=== PATIENT | female | born 1955 | race Caucasian/White ===

== ENCOUNTER 2022-06-10 11:28 | Emergency (ER) | payer MEDICARE, BC, SELFPAY ==
--- NOTE | 2022-06-10 11:30 | CRLHL7_ITS ---
For Patients: As a result of the Cures Act, medical imaging exams and procedure reports are released immediately into your electronic medical record. You may view this report before your referring provider. If you have questions, please contact your health care provider. Indication: Injury Technique: A total of three views of the left breast were acquired. Comparison: None Findings: Bones: Demineralization. Comminuted impacted distal left radius fracture with intra-articular extension. Ulnar styloid fracture. Posttraumatic positive ulnar variance. Joint spaces: Osteoarthritis Soft tissues: Soft tissue swelling Impression: Comminuted impacted distal left radius fracture with intra-articular extension. This is dorsally angulated. Ulnar styloid fracture. Demineralization. Osteoarthritis. Dictated by Iker Ayala MD @ 06/10/2022 1:10:42 PM (Electronically Signed)
[2022-06-10 11:44] VITALS: BP 132/80; PULSE 75; RESP 16; TEMP 36.9; O2SAT 93
--- NOTE | 2022-06-10 12:38 | ED.GENADULT ---
HPI - General Adult General Time Seen by Provider: 12:38 Date Seen: 06/10/22 Chief complaint: Fall/Minor Trauma Stated complaint: Fell yesterday, left wrist injury Time Seen by Provider: 06/10/22 11:29 Source: patient Mode of arrival: ambulatory Limitations: no limitations History of Present Illness HPI narrative: Patient is a 67 year white female who reportedly fell in the snow yesterday and injured her left wrist. She has pain only in her left wrist area primarily in the snuffbox region, with some dorsal swelling of her wrist. She has fair range of motion of her wrist but it feels swollen and painful. She did not injure elbow forearm or shoulder, she generally port she is healthy but has ?difficulty getting around at times and ?. Patient denies neck pain, loss conscious comes, headache or head injury Related Data Previous Rx's Medication Instructions Recorded diclofenac sodium 50 mg 50 mg PO BID #60 tabs 01/29/22 tablet,delayed release aripiprazole 5 mg tablet 5 mg PO .hs #90 tabs 04/16/22 levothyroxine 50 mcg capsule 50 mcg PO QDAY #90 caps 04/16/22 lorazepam 1 mg tablet 1 mg PO QDAY PRN anxiety #30 tabs 04/16/22 rosuvastatin 5 mg tablet 5 mg PO DAILY #90 tabs 04/16/22 tolterodine 1 mg tablet 1 mg PO BID #180 tabs 04/16/22 Allergies Allergy/AdvReac Type Severity Reaction Status Date / Time No Known Drug Allergies Allergy Verified 04/16/22 09:34 Review of Systems Status of ROS: Reports: 6 or more systems reviewed and unremarkable except as noted in History and below [facility] Social History Smoking Status: Never smoker Little interest or pleasure in doing things: several days Feeling down, depressed, or hopeless: several days Exam Narrative: Exam Narrative: Objective: Patient is alert orient x3, neck and head are unremarkable Vital signs unremarkable Left upper extremity shows no bruising of the shoulder no tenderness the shoulder, arm, or elbow. The patient does have some bruising of her distal forearm and wrist, and some soft tissue swelling over dorsum wrist, she is mildly tender in her anatomic snuffbox on the left wrist. No open wounds are noted, distal CMS intact Const: Vital Signs, click to edit/add: Vital Signs - 24 hr 06/10/22 11:44 Temperature 98.4 F Pulse Rate [Pulse Oximeter] 75 Respiratory Rate 16 Blood Pressure [Ri ght Upper Arm] 132/80 Pulse Oximetry 93 Oxygen Delivery Me thod Room Air Course Vital Signs Vital signs: Initial Vital Signs Temperature 98.4 F 06/10/22 11:44 Temperature Source Temporal Artery Scan 06/10/22 11:44 Pulse Rate 75 06/10/22 11:44 Pulse Rhythm 06/10/22 11:44 Respiratory Rate 16 06/10/22 11:44 Blood Pressure 132/80 06/10/22 11:44 Blood Pressure Mean 97 06/10/22 11:44 Blood Pressure Position Sitting 06/10/22 11:44 Pulse Oximetry 93 06/10/22 11:44 Oxygen Delivery Method 06/10/22 11:44 Vital Signs Temperature 98.4 F 06/10/22 11:44 Pulse Rate 75 06/10/22 11:44 Respiratory Rate 16 06/10/22 11:44 Blood Pressure 132/80 06/10/22 11:44 Pulse Oximetry 93 06/10/22 11:44 Oxygen Delivery Method 06/10/22 11:44 Temperature 98.4 F 06/10/22 11:44 Pulse Rate 75 06/10/22 11:44 Respiratory Rate 16 06/10/22 11:44 Blood Pressure 132/80 06/10/22 11:44 Pulse Oximetry 93 06/10/22 11:44 Oxygen Delivery Method 06/10/22 11:44 Medical Decision Making MDM Narrative Medical decision making narrative: I suspect the patient may have a distal radial fracture or even a scaphoid fracture, given her areas of discomfort, will need x-rays as above. Irregardless of x-rays will need a thumb spica splint ortho follow-up in 3-5 days, ibuprofen and Tylenol as needed for discomfort. Splint precautions will be given. Addendum: By my read the patient has a comminuted distal radial fracture that is mildly dorsally angulated, but given his comminuted appearance I do not think relocation is going to be useful will simply splint a thumb spica splint orthopedic followup in 3-5 days we will make an appointment for her eyelid Advil and Tylenol as needed. I applied the thumb spica splint Discharge Plan Discharge Clinical Impression: Injury of left wrist Patient Disposition: Home, Self-Care Condition: Stable Instructions: Wrist Fracture in Adults (ED) Additional Instructions: Splint, elevation, ibuprofen and Tylenol as needed, follow-up with orthopedics as scheduled within the next 3-5 days. Return sooner to ED problems or concerns. If splint is too tight or other issues, return to ED sooner than follow-up appointment. Activity Level: Light activity Discharge Diet: Regular Prescriptions: No Action levothyroxine 50 mcg capsule 50 mcg PO QDAY Qty: 90 1RF aripiprazole 5 mg tablet 5 mg PO .hs Qty: 90 1RF rosuvastatin 5 mg tablet 5 mg PO DAILY Qty: 90 1RF lorazepam 1 mg tablet 1 mg PO QDAY PRN (Reason: anxiety) Qty: 30 1RF tolterodine 1 mg tablet 1 mg PO BID Qty: 180 1RF diclofenac sodium 50 mg tablet,delayed release (DR/EC) 50 mg PO BID Qty: 60 3RF Follow Up/Referrals: Hieu Santos MD [Primary Care Provider] - Stand Alone Forms: [facility] Info Instructions Procedures Additional Procedures Procedure name: I personally applied a short-arm thumb spica splint to the patient. We davina
[2022-06-10] MEDS: KETOROLAC 10 MG TABLET PO (13:07)
--- NOTE | 2022-06-10 13:37 | ED.NURSE ---
No appointments were available in requested follow up time frame. Email was sent to scheduling to reach out to patient and work on appointment.
== END 2022-06-10 13:38 | disposition home or self-care (01) ==
LOC: ED 12:53
PROVIDERS: Emergency Provider Family Medicine; PCP Family Medicine
DX: S52.352A Displaced comminuted fracture of shaft of radius, left arm, initial encounter for closed fracture (principal); W00.9XXA Unspecified fall due to ice and snow, initial encounter
CPT/HCPCS: 29125; 73110; 99284; A9270

== ENCOUNTER 2022-06-19 11:24 | Outpatient (CLI) | payer MEDICARE, BC, SELFPAY | END 2022-06-19 11:25 | disposition home or self-care (01) | LOC: LONREF 11:26 | PROVIDERS: PCP Family Medicine; Visit Provider Family Medicine | DX: E03.9 Hypothyroidism, unspecified (principal) | CPT/HCPCS: 84443 ==

== ENCOUNTER 2022-06-21 06:52 | Day surgery (SDC) | payer MEDICARE, BC, SELFPAY ==
[2022-06-21] VITALS (10 sets, daily range): BP systolic 111–135; BP diastolic 38–83; PULSE 52–71; RESP 16–18; TEMP 36.5–36.7; O2SAT 93–99; BMI 41.7
[2022-06-21] MEDS: SODIUM CHLORIDE 0.9 % (FLUSH) 10 ML SYRINGE IVF (07:30)
[2022-06-21] MEDS: LACTATED RINGERS 1000 ML 1,000 ML 100 ML IV ×2 (07:30→08:50)
[2022-06-21] MEDS: MIDAZOLAM HCL 1 MG/ML inj IVP (07:35)
[2022-06-21] MEDS: fentaNYL 100 MCG/2 ML inj IVP (07:35)
--- NOTE | 2022-06-21 07:36 | SUR.PREOP ---
TIME?OUT:?0735 PT/RN/MDA?VERIFICATION?OF?SURGICAL?SITE,?PROCEDURE,?AND?CONSENT OBTAINED?PRIOR?TO?INVASIVE?PROCEDURE.
--- NOTE | 2022-06-21 07:58 | P.NB_ITS ---
Nerve Block Nerve Block Time Seen by Provider: 07:30 Date Seen: 06/21/22 Type of block requested by surgeon for post-operative analgesia: axillary Side: left Time out performed: Yes Verification of patient name: Yes Verification of date of : Yes Name of person performing procedure: Charles Dodson Continuous monitoring Was continuous monitoring of O2 sat, B/P, vehicle monitor technician, recorded every 15 minutes?: Yes Procedure Checklist: sterile prep, needles and gloves Ultrasound guided. Images saved: Yes Medications given in 5ml increments after negative aspiration: Ropivicaine %: 0.5 mL: 16 and Lidocaine %: 2 mL: 5 Decadron (mg): 10 Precedex (mcg): 20 Patient tolerated procedure well: Yes Block Charges Block Charge (with Pro Fee): Axillary Nerve Use of Ultrasound Machine for Block: Yes- US Guidance/pain block
--- NOTE | 2022-06-21 08:00 | CRLHL7_ITS ---
For Patients: As a result of the Cures Act, medical imaging exams and procedure reports are released immediately into your electronic medical record. You may view this report before your referring provider. If you have questions, please contact your health care provider. Indication: ORIF LEFT DISTAL RADIUS Technique: Three fluoroscopic images of the left wrist. Fluoroscopic time 50.9 seconds. IMPRESSION: Fluoroscopic guidance for open reduction internal fixation of distal radial fracture. Dictated by Omar Corcoran MD @ 06/21/2022 1:48:46 PM (Electronically Signed)
--- NOTE | 2022-06-21 08:49 | W.ANESCHARGE ---
Anesthesia Charges Start Date/Time Anesthesia Start Date: 06/21/22 Anesthesia Start Time: 07:51 Stop Date/Time Anesthesia Stop Date: 06/21/22 Anesthesia Stop Time: 09:44 Summary Emergency: No
--- NOTE | 2022-06-21 09:14 | PM.ORPRC ---
Procedure Note Date of procedure: 06/21/22 Procedure: PREOPERATIVE DIAGNOSIS: Angulated 3+ part intra-articular left upper extremity distal radius fracture POSTOPERATIVE DIAGNOSIS: Angulated 3+ part intra-articular left upper extremity distal radius fracture NAME OF OPERATION: Open reduction internal fixation SURGEON: Will Wynn MD APPLICATIONS SYSTEMS ENGINEER: MO Whatley ANESTHESIA: Supraclavicular block plus monitored anesthesia care ESTIMATED BLOOD LOSS: 0 mL COMPLICATIONS: None SPECIMENS: None DRAINS: None PREOPERATIVE ANTIBIOTICS: Ancef 2 grams INDICATIONS: The patient is a 67-year-old who fell landing on their upper extremity sustaining the above injury. Given the amount of angulation, reduction and plate fixation were recommended. The risks, benefits and expected outcomes were discussed in detail. These included but were not limited to: Infection, bleeding, injury to blood vessel or nerve, venous thromboembolism. All questions were answered to their satisfaction. Use of an obstetric assistant was necessary throughout the case for patient positioning and safety, maintenance of the reduction, surgical site dressing and splint application. A modifier 22 should be applied to this case. The fracture is nearly 2-weeks-old and the patient's weight of 107 kilos with a BMI of 41.7 kg/meter squared made exposure and the reduction quite difficult. This more than doubled the time typically required to complete the case. PROCEDURE: A supraclavicular block was placed by Anesthesia. The patient was placed supine on the operating room table. IV sedation was administered. The reduction was obtained with longitudinal traction and volar force on the distal fragment, held by the obstetric assistant. The image intensifier was used to confirm an excellent reduction. The extremity was prepped and draped in the usual sterile fashion. The limb was exsanguinated with the Jeff bandage. The pneumatic tourniquet was inflated to 250 mm of mercury. A longitudinal incision was made over the flexor carpi radialis. Subcutaneous dissection was taken sharply through the FCR sheath. The FCR was retracted radially. Sharp dissection was carried through the floor of the FCR sheath. The flexor pollicis longus was retracted ulnarly. Sharp dissection was carried through the radial border of the pronator quadratus which was elevated ulnarly, exposing the fracture site. The obstetric assistant held retractors to expose the fracture. The volar cortex of the fracture is anatomically aligned. We placed a Synthes standard, 3 hole volar locking plate over the volar cortex. It was provisionally held with 2 K-wires, while the obstetric assistant held the reduction. Its placement was confirmed with the image intensifier. We placed a cortical screw in the slot. We placed a locking screw in the shaft. We then filled the distal screw holes with smooth locking pegs using the image intensifier to confirm their extra-articular placement. Finally, a 2nd locking screw was placed in the shaft fragment. This construct was imaged in multiple views and was felt to be well placed with an anatomic reduction and well placed implants. The wound was irrigated normal saline. Subcutaneous tissues were reapproximated a 2-0 Vicryl, skin with a running 3-0 Monocryl in a subcuticular fashion. Glue was used to seal the skin. A dry dressing and short-arm dorsal volar splint was applied. These steps were all completed by the obstetric assistant. The tourniquet was released, sponge and needle counts were correct x2. The patient tolerated the procedure well, there were no apparent complications. They were taken to the postanesthesia care unit in satisfactory condition. PLAN: The patient will be discharged home. They will work on elevation of the hand and active range of motion of the fingers. They will follow up next week in the office for a wound check with a PA, oblique, lateral and fossa lateral view of the wrist out of the splint prior to being seen in preparation for early active motion with Orthoplast splint protection.
== END 2022-06-21 11:25 | disposition home or self-care (01) ==
PROVIDERS: PCP Family Medicine; Visit Provider Orthopaedic Surgery
PROC: (CPT 25575; principal; 2022-06-21 08:00)
DX: S52.572A Other intraarticular fracture of lower end of left radius, initial encounter for closed fracture (principal)
CPT/HCPCS: 25609; 01830; 64417; 73110; 76942; A4580; C1713; J0360; J1100; J2250; J2704; J2795; J3010; J3490; J7120

== ENCOUNTER 2022-07-31 09:30 | Outpatient (RCR) | payer MEDICARE, BC, SELFPAY ==
--- NOTE | 2022-06-28 16:35 | OT.OPOE ---
OT Outpatient Ortho Eval OT Outpatient Ortho Eval Start: 06/28/22 07:48 Freq: Status: Active Protocol: Document 06/28/22 07:48 AMB (Rec: 06/28/22 16:30 AMB [id number]) E-signed By Keli Reno, OTR/L, CLT, BOLT MACHINE OPERATOR OT OP Ortho Eval Details Type Type Eval Complexity Low Insurance Information Insurance Information Medicare B Outpatient History/Precautions Current Condition/Medical Diagnosis Referring Provider Dr Wynn Treatment Diagnosis LUE DR duong, s/p ORIF Date of Onset DOI: 06/10/22, DOS:06/21/22 Medical Conditions Depression,HTN,CA,Metal Implants Other Conditions Breast cancer Depression with anxiety Hearing loss Hypercholesteremia Hypothyroidism Lichen sclerosus et atrophicus of the vulva Nondisplaced fracture of left ulna styloid process, initial encounter for closed fracture Overactive bladder S/P right mastectomy S/P total left hip arthroplasty Medications: levothyroxine 50 mcg capsule 50 mcg PO QDAY Qty: 90 1RF aripiprazole 5 mg tablet 5 mg PO .hs Qty: 90 1RF rosuvastatin 5 mg tablet 5 mg PO DAILY Qty: 90 1RF lorazepam 1 mg tablet 1 mg PO QDAY PRN (Reason: anxiety) Qty: 30 1RF tolterodine 1 mg tablet 1 mg PO BID Qty: 180 1RF diclofenac sodium 50 mg tablet ,delayed release (DR/EC) 50 mg PO BID Qty: 60 3RF Medical/Functional History Medical History Reviewed Yes Social History Employment Status Retired Oriented Mental Status No Concerns Ortho Subjective Subjective Subjective Pt states she fell on the ice at her daughter's house on sustaining the fx in her wrist. Pt states she had to wait until 06/21/22 to have surgery as she had a lot of swelling. Pt shat she has a fair amt of pain in her wrist, rating it at 7/10 with movement, less at rest. Pt is retired and lives alone, has friends that come in and help as needed. Pt states she has difficulty with cooking, cleaning, folding clothes and anything that requires use of LUE / BUE. Pt states she really doesn't have any hobbies, watches TV mostly, no regular exercise. Pain Assessment Pain Present Pain Present Pain Reported Location Left Wrist Description Dull, Achy,Throbbing Intensity 7 Elbow Goniometric Elbow Left Testing Position Sitting Active Flexion (135-150 degrees) 145 Active Extension (0 degrees) 0 H Active Pronation 60 Active Supination 55 ROM Limitations Soft Tissue Tightness,Pain Wrist Goniometric Wrist Left Active Flexion (70-90 degrees) 40 L Active Extension (60-70 degrees) 30 L Active Ulnar Deviation (20-30 degrees) 15 L Active Radial Deviation (15-20 degrees) 10 L ROM Limitations Soft Tissue Tightness,Pain Goniometric Comments Goniometric Comments Goniometric Comments 06/28/22 Pt is able to complete composite fist to -4.5cm from tip of 3rd digit to DPC and opposition to the tip of the 5th digit. OT Objective Data Hand Hand Dominance Right Sensation Sensation Assessment Summary Comments Denies any paresthesia OT Problems Problems Problems Decreased Strength,Decreased Range of Motion,Decreased Dexterity,Decreased Fine Motor ,Decreased Coordination, Lifting,Gripping,Pinching Patient Potential Good Assessment Assessment Assessment Pt presents to OT 1 week s/p MICHELLE SEPULVEDA with orders for eval and treat as well as custom splinting. Pt has swelling, pain, weakness and limited AROM of the LUE hand, wrist and forearm. These limitations make it hard for pt to fold clothes, cook, clean, and perform any other ADLs and IADLs that require use of BUE. Pt will benefit from skilled OT intervention to address limitations and restore full, pain-free use of her LUE. Occupational Therapy Treatment Plan - OP Potential Rehabilitation Potential Good Set Goals Goals Set with Patient Yes Goals Goals 1. Pt will be independent and compliant with HEP in order to resume full, pain-free use of the involved UE. 3 weeks 2. Pt will demonstrate full, pain-free AROM of the involved UE in order to improve ability to grasp and hold. 6 weeks 3. Pt will demonstrate pain- free credit assistant and pinch strength comparable to the uninvolved side in order to improve functional grasp, hold, reach, and lifting ability needed to complete self-care, leisure tasks, and work activities. 8 weeks. Progress set Treatment Plan Treatment Plan Evaluation,Joint Mobilization, Manual Therapy,Splinting,Wound Care/Scar Management, Therapeutic Exercise, Therapeutic Activities,Self- Care/Home Management,Education Expected Frequency 1-2x Week Expected Duration 6-8 Weeks Certification Certification I Certify That: Therapy Services Provided, Therapy Plan Established, Therapy Plan Reviewed Recertification Information Recertification Information Initial Certification Date 06/28/22 Recertification Due Date 09/26/22 Reasons to Continue Skilled Therapy Initiating OT today for rehabilitation following LUE DR duong s/p [facility] Rehabilitation Potential Good Continued Plan of Care and Interventions See above Provider Signature Shows Agreement With POC & Medical Necessity Physician Comment/Change Comment or Changes Physician NPI Number #
== END 2023-01-03 23:59 | disposition home or self-care (01) ==
PROVIDERS: PCP Family Medicine; Visit Provider Orthopaedic Surgery
DX: M25.532 Pain in left wrist (principal); Z51.89 Encounter for other specified aftercare
CPT/HCPCS: 97110; 97140; 97165; L3906; X5282

== ENCOUNTER 2022-08-14 08:02 | Outpatient (CLI) | payer MEDICARE, BC, SELFPAY ==
[2022-08-14 13:59] LABS: Cholesterol* 184 mg/dL (90-199); HDL Cholesterol* 80 mg/dL (>=50); LDL Cholesterol Calculated 83 mg/dL (<100); Triglycerides* 103 mg/dL (40-149)
== END 2022-08-14 08:03 | disposition home or self-care (01) ==
LOC: LONREF 08:03
PROVIDERS: PCP Family Medicine; Visit Provider Family Medicine
DX: E78.00 Pure hypercholesterolemia, unspecified (principal); E03.9 Hypothyroidism, unspecified; F41.8 Other specified anxiety disorders
CPT/HCPCS: 80061

== ENCOUNTER 2022-08-30 14:41 | Outpatient (CLI) | payer MEDICARE, BC, SELFPAY ==
--- NOTE | 2022-08-30 15:00 | CRLHL7_ITS ---
For Patients: As a result of the Century Cures Act, medical imaging exams and procedure reports are released immediately into your electronic medical record. You may view this report before your referring provider. If you have questions, please contact your health care provider. DXA BONE MINERAL DENSITY STUDY Reason for exam: Screen. Current height (in): 64. Weight (lb): 234. Menopause age: 38. Ethnicity: White. 1. Have you had a previous hip or vertebral fracture? No. 2. Have you had any fractures during your adult life which did not result from significant trauma (e.g., auto accident)? No. 3. Did either of your parents have a hip fracture? No. 4. Do you smoke? No. 5. Have you ever taken Glucocorticoids? No. 6. Do you have rheumatoid arthritis? No. 7. Do you have secondary osteoporosis? No. 8. Do you drink 3 or more alcoholic drinks per day? No. 9. Are you being treated for osteoporosis? No. 10. Have you ever taken any of the following medications: Actonel, Evista, Fosamax, Miacalcin, Reclast, Boniva, Forteo, HRT (i.e. estrogen/hormone therapy), Protelos, Prolia, Vitamin D, Calcium, other ??? please specify. ANSWER: No. 11. Do you have any of the following medical conditions: Anorexia or bulimia, asthma or emphysema, end stage renal disease, hyperparathyroidism, any seizure disorders, cancer, inflammatory bowel diseases, hysterectomy, other ??? please specify. ANSWER: Yes, cancer. 12. What was your maximum height (inches)? 64. 13. Do you perform weight bearing exercise regularly? No. 14. Do you regularly consume dairy products? Yes. 15. Do you drink caffeinated beverages? Yes. 16. At what age did your period start? 14. 17. Are you premenopausal? No. 18. How many full term pregnancies have you had? 1. 19. Have you ever missed your period for more than 6 months in a row (not including or menopause)? No. TECHNIQUE: Bone mineral density study was performed using the [employer]. FINDINGS: The results of the study expressed as bone mineral density (BMD) are as follows: Lumbar spine L1 to L4: BMD: 0.806 g/cm2. T-score: -2.2. Z-score: -0.3. Neck Right: BMD: 0.581 g/cm2. T-score: -2.4. Z-score: -0.8. Total Right: BMD: 0.683 g/cm2. T-score: -2.1. Z-score: -0.8. Radius Right 33%: BMD: 0.492 g/cm2. T-score: -3.4. Z-score: -1.6. IMPRESSION: Osteoporosis. *Comparison exams done prior to 11/2019 were performed on different unit, [employer]. FRAX 10-year Fracture Risk Major Osteoporotic Fracture: 11 percent Hip Fracture: 2.0 percent Reported Risk Factors: [place] () Neck BMD=0.581, BMI=40.2 Omar Corcoran M.D. Diagnostic Radiologist [email or web address] DESTINEE/Dictated by: Omar Corcoran MD @ 08/31/2022 10:05:00 AM (Electronically Signed)
== END 2022-08-30 14:42 | disposition home or self-care (01) ==
LOC: RAD 14:41
PROVIDERS: PCP Family Medicine; Visit Provider Family Medicine
DX: Z13.820 Encounter for screening for osteoporosis (principal); M81.0 Age-related osteoporosis without current pathological fracture; Z78.0 Asymptomatic menopausal state
CPT/HCPCS: 77080

== ENCOUNTER 2022-12-31 10:20 | Outpatient (CLI) | payer MEDICARE, BC, SELFPAY | END 2022-12-31 10:21 | disposition home or self-care (01) | PROVIDERS: PCP Family Medicine; Visit Provider Family Medicine | DX: E66.9 Obesity, unspecified (principal); R73.03 Prediabetes; I10 Essential (primary) hypertension; R73.9 Hyperglycemia, unspecified; E03.9 Hypothyroidism, unspecified; E78.00 Pure hypercholesterolemia, unspecified | CPT/HCPCS: 80053 ==

== ENCOUNTER 2023-04-05 14:59 | Outpatient (CLI) | payer MEDICARE, BC, SELFPAY | END 2023-04-05 15:00 | disposition home or self-care (01) | LOC: LKVREF 15:01 | PROVIDERS: PCP Family Medicine; Visit Provider Family Medicine | DX: R14.0 Abdominal distension (gaseous) (principal); R73.03 Prediabetes | CPT/HCPCS: 80076 ==

== ENCOUNTER 2023-04-15 10:43 | Outpatient (CLI) | payer MEDICARE, BC, SELFPAY ==
--- NOTE | 2023-04-15 11:00 | CRLHL7_ITS ---
For Patients: As a result of the Century Cures Act, medical imaging exams and procedure reports are released immediately into your electronic medical record. You may view this report before your referring provider. If you have questions, please contact your health care provider. INDICATION: abdominal bloating, increased LFTs COMPARISON: none TECHNIQUE: Real time bourgeois scale imaging and color Doppler analysis was performed of the right upper quadrant. FINDINGS: The patient`s liver is of normal size and has mildly coarsened echogenicity. No intrahepatic mass. The liver measures 15.7 cm. There is a normal appearance of the hepatic IVC and proximal abdominal aorta. There is no evidence of ascites. The gallbladder is of normal size and there is no evidence of intraluminal stones or sludge. The gallbladder wall measures 1.7 mm in thickness. The common bile duct is of normal size and measures 4.2 mm in diameter at the level of the mary hepatis. The pancreas appears normal. There is no evidence of a stone or hydronephrosis within the right kidney. The right kidney measures 9.6 cm in length. IMPRESSION: Chronic liver disease. No intrahepatic mass or ascites. Normal gallbladder. Dictated by Omar Corcoran MD @ 04/15/2023 12:38:17 PM (Electronically Signed)
== END 2023-04-15 10:44 | disposition home or self-care (01) ==
LOC: US 10:44
PROVIDERS: PCP Family Medicine; Visit Provider Family Medicine
DX: R79.89 Other specified abnormal findings of blood chemistry (principal); K76.89 Other specified diseases of liver; R14.0 Abdominal distension (gaseous)
CPT/HCPCS: 76705

== ENCOUNTER 2023-11-21 14:37 | Outpatient (CLI) | payer MEDICARE, BC, SELFPAY ==
--- OUTSIDE RECORDS SUMMARY | 2023-11-21 14:39 | XMS_ITS | Clinical Summary ---
Author Organization [employer] [facility] Address [place], [place] [address] Care Team Providers Care Orthopedic Coder Name Role Phone Hieu Santos MD Primary Care Provider [phone] Elizabeth Wallace NP Unavailable Unavailable Allergies Active Allergy Reactions Criticality Noted Date Comments Nsaids (Non-Steroidal Anti-Inflammatory Drug) Other - Describe In Comment Field 05/16/2009 Pt had gastric bypass surgery, should not take NSAIDS. Medications Medication Sig Dispensed Refills Start Date End Date Status TRAZODONE HCL ORAL 100 mg /day 0 Activ e CELEXA ORAL 60 mg/day 0 Active BUSPAR ORAL 2/day 0 Active CLONAZEPAM ORAL as needed 0 Active VITAMIN B-12 1,000 MCG/ML INJECTION inject 1 milliliter (1000 mcg) by subcutaneous route monthly Active MULTIVITAMIN & MINERAL FORMULA ORAL Take one in the morning and one at bedtime Active CALCIUM CITRATE + D ORAL Take 2000 mg daily in divided doses---separate from multivitamin by 2 hours Active ferrous gluconate 236 mg (27 mg iron) tab Daily Active Triamcinolone Acetonide 0.025 % lotion Twice A Day Active amLODIPine (NORVASC) 5 mg tablet 09/28/2019 Active ARIPiprazole (ABILIFY) 5 mg tablet 11/18/2019 Active betamethasone dipropionate 0.05% (DIPROSONE 0.05% CREAM) 0.05 % cream Twice A Day Acti ve diclofenac enteric coated (VOLTAREN) 50 mg tablet 12/03/2019 Active escitalopram oxalate (LEXAPRO) 20 mg tablet 10/12/2019 Active levothyroxine (SYNTHROID) 25 mcg tablet 10/20/2019 Active LORazepam (ATIVAN) 0.5 mg tab 02/09/2019 Active metoprolol succinate (TOPROL XL) 100 mg Sustained-Release tablet 10/05/2019 Active prazosin (MINIPRESS) 1 mg capsule 10/21/2019 Active triamcinolone (ARISTOCORT; KENALOG) 0.1 % cream 08/31/2019 Acti ve triamterene-hydrochl orothiazide, 37.5-25 mg, (MAXZIDE-25) 37.5-25 mg tablet 12/07/2019 Active clobetasol cream 0.05% (TEMOVATE) 0.05 % cream APPLY TO AFFECTED AREA NIGHTLY 02/04/2020 Active Active Problems Problem Noted Date Diagnosed Date Sensorineural hearing loss, bilateral 08/21/2018 Social History Tobacco Use Types Packs/Day Years Used Date Smoking Tobacco: Never Smokeless Tobacco: Never Tobacco Cessation:Counseling Given: Yes Alcohol Use Standard Drinks/Week Comments Yes 0 (1 standard drink = 0.6 oz pur e alcohol) occasional Social Connections Answer Date Recorded Frequency of Communication with Friends and Fami ly Not on file 06/17/2021 Financial Resource Strain Answer Date R ecorded Difficulty of Paying Living Expenses Not on file 06/17/2021 Difficulty of Paying Living Expenses Not on file 06/17/2021 Sex and Gender Information Value Date Recorded Sex Assigned at Not on file Gender Identity Not on file Sexual Orientation Not on file Obstetrics History Last Filed Vital Signs Vital Sign Reading Time Taken Comments Blood Pressure 144/80 04/20/2020 2:22 PM PHOTOGRAPHER SCIENTIFIC Pulse 61 04/20/2020 2:22 PM PHOTOGRAPHER SCIENTIFIC Temperature 36.7 ??C (98.1 ??F) 04/20/2020 2:22 PM CS T Respiratory Rate 16 01/04/2005 1:00 PM CDT Oxygen Saturation 96% 04/20/2020 2:22 PM PHOTOGRAPHER SCIENTIFIC Inhaled Oxygen Concentration - - Weight 84.5 kg (186 lb 3.2 oz) 04/20/2020 2:22 P M PHOTOGRAPHER [employer]IFIC Height 160 cm (5' 3) 05/16/2009 2:00 PM PHOTOGRAPHER SCIENTIFIC Body Mass Index - - Plan of Treatment Health Maintenance Due Date Last Done Comments Tdap 1967 Depression screening for age 12+ 1968 BMI (ht and wt on same day) for age 18+ 1974 Hepatitis C screening for age 18-79 1974 Tetanus booster 1976 Colonoscopy through age 75 2001 Lipids for age 45-75 2001 Mammogram for age 45-75 2001 Zoster (shingles) series for age 50+ (1 of 2) 2006 DEXA/DXA scan for age 65+ 2021 Medicare Wellness for age 65+ 2021 Pneumococcal series for age 65+ (1 of 1 - PCV) 2021 COVID-19 vaccine series (4 - 2022-24 season) 2023 07/04/2021, 09/30/2020, 09/02/2020 Influenza for age 65+ 02/16/2024 Care Teams Orthopedic Coder Relationship Specialty Start Date End Date Hieu Santos MD [address] [place] [id number] PCP - General Family Practice 05/29/17 Elizabeth Wallace NP 05/29/17
== END 2023-11-21 14:38 | disposition home or self-care (01) ==
LOC: LKVREF 14:37
PROVIDERS: PCP Family Medicine; Visit Provider Family Medicine
DX: E78.00 Pure hypercholesterolemia, unspecified (principal); N39.0 Urinary tract infection, site not specified; R79.89 Other specified abnormal findings of blood chemistry; R73.03 Prediabetes; E66.9 Obesity, unspecified; I10 Essential (primary) hypertension; E03.9 Hypothyroidism, unspecified
CPT/HCPCS: 80053; 80061; 84443; 87086; 87186

== ENCOUNTER 2023-12-17 13:10 | Outpatient (CLI) | payer MEDICARE, BC, SELFPAY ==
--- OUTSIDE RECORDS SUMMARY | 2023-12-19 11:47 | XMS_ITS | Clinical Summary ---
Author Organization [id number] [facility] Address [place], [place] [address] Care Team Providers Care Kilnman Name Role Phone Hieu Santos MD Primary Care Provider [phone] Elizabeth Wallace NP Unavailable Unavailable Allergies Active [...] Comments Blood Pressure 144/80 04/20/2020 2:22 PM BEVEL GEAR GENERATOR OPERATOR Pulse 61 04/20/2020 2:22 PM BEVEL GEAR GENERATOR OPERATOR Temperature 36.7 ??C (98.1 ??F) 04/20/2020 2:22 PM CS T Respiratory Rate 16 01/04/2005 1:00 PM CDT Oxygen Saturation 96% 04/20/2020 2:22 PM BEVEL GEAR GENERATOR OPERATOR Inhaled Oxygen Concentration - - Weight 84.5 kg (186 lb 3.2 oz) 04/20/2020 2:22 P M BEVEL GEAR GENERATOR OPERATOR Height 160 cm (5' 3) 05/16/2009 2:00 PM BEVEL GEAR GENERATOR OPERATOR Body Mass Index - - Plan of [...] Influenza for age 65+ 02/16/2024 Care Teams Kilnman Relationship Specialty Start Date End Date Hieu Santos MD [address] [place] [id number] PCP - General Family Practice 05/29/17 Elizabeth Wallace NP 05/29/17
--- OUTSIDE RECORDS SUMMARY | 2023-12-19 11:47 | XMS_ITS | Data Portability ---
Author Organization [facility], [facility] Address [address] [place] [address] Care Team Providers Care Technical Data Analyst Name Role Phone MARGOTH WESTFALL Primary Care Provider [phone] Assessment No assessment recorded. Plan of Treatment Reminders Order Date Submit Date Provider Last Modified By Organization Details Last Modified Time Details Appointments None recorded. Lab urinalysis, dipstick 2022 023 [facility], [address], [address], [place], [address], 3 10:59:44 urinalysis, dipstick 2022 023 [facility], [address], [address], [place], [address], 3 15:24:43 culture, urine 2022 023 [facility], [address], [address], [place], [address], 3 10:33:35 urinalysis, dipstick 2022 023 [facility], [address], [address], [place], [address], 3 12:33:42 culture, urine 2022 023 [facility], [address], [address], [place], [address], 3 11:26:28 Referral None recorded. Procedures None recorded. Surgeries None recorded. Imaging None recorded. Medication Orders Estrace 0.01% (0.1 mg/gram) vaginal cream 2022 023 [email or web address] #[id number], [address] [place], [place], [id number], 3 12:28:10 tolterodine ER 4 mg capsule,ext ended release 24 hr 2022 023 [id number] [facility] #[id number], [address] [place], [place], [id number], 3 16:27:45 tolterodine ER 4 mg capsule,ext ended release 24 hr 2022 023 [facility] #[id number], [address] [place], [place], [id number], 3 16:27:45 Patient TargetsNo targets recorded. Patient Instructions Encounter Date Encounter Id Patient Instructions Last Modified By Organization Details Last Modified Time 09/21/2022 [id number] Overactive bladder (OAB), mixed urinary incontinence: -UUI>ANIBAL. -Reviewed overactive bladder care pathway and gave handout. -Discussed first-line conservative management including timed voiding, urge suppression strategies, pelvic floor exercises, and avoidance of bladder irritants. -Discussed second-line therapies including pelvic floor physical therapy and OAB medications. -After hearing the options, patient would like to try increasing the tolterodine from 2 mg to 4 mg ER. Monitor for side effects. -Enrolled in OAB nurse navigation. -Follow up in 6-8 weeks with symptoms PVR check. [email or web address] Not available 09/21/2022 10:57:18 11/22/2022 [id number] Overactive bladder (OAB), mixed urinary incontinence: -UUI>ANIBAL. -Reviewed overactive bladder care pathway: timed voiding, urge suppression strategies, pelvic floor exercises, and avoidance of bladder irritants, pelvic floor physical therapy and OAB medications. -To start tolterodine 4 mg ER. Monitor for side effects. -Discussed other OAB medications if fails. -Follow up in 2 month with pvr check. [email or web address] Not available 11/22/2022 14:56:21 02/13/2023 [id number] Overactive bladder (OAB), mixed urinary incontinence: -UUI>ANIBAL. -Reviewed overactive bladder care pathway: timed voiding, urge suppression strategies, pelvic floor exercises, and avoidance of bladder irritants, pelvic floor physical therapy and OAB medications. -Continue Tolterodine 4 mg ER. Monitor for side effects. Happy with benefit. -Discussed we can consider another OAB medications if fails. -Follow up in if unable to be established with a provider close to home. [email or web address] Not available 02/13/2023 13:07:17 Reason for Referral None Reported. Results Created Date Observation Date Name Description Value Unit Range Abnormal Flag LastModifiedBy Organization Detail LastModifiedTime 09/22/1909/21/2022 UA WITHO UT MICRO - CS URISC AN blood - uriscan TRACE negati ve abnormal Not Available [facility] [address], [place], [address], 09/21/2022 10:59:44 09/22/19 23 09/21/2022 UA WITHO UT MICRO - CS URISC AN bilirubin - uriscan NEGATI VE mg/dL negati ve Not Available [facility] [address] [facility] [address], [place], [address], 09/21/2022 10:59:44 09/22/19 23 09/21/2022 UA WITHO UT MICRO - CS URISC AN urobilinogen - uriscan NORMAL mg/dL normal Not Available [facility] [address], [place], [address], 09/21/2022 10:59:44 09/22/19 23 09/21/2022 UA WITHO UT MICRO - CS URISC AN ketones - uriscan NEGATI VE mg/dL negati ve Not Available [facility] [address] [facility] [address], [place], [address], 09/21/2022 10:59:44 09/22/19 23 09/21/2022 UA WITHO UT MICRO - CS URISC AN protein - uriscan NEGATI VE mg/dL negati ve Not Available [facility] [address] [place] [address], [place], [address], 09/21/2022 10:59:44 09/22/19 23 09/21/2022 UA WITHO UT MICRO - CS URISC AN nitrites - uriscan NEGATI VE negati ve Not Available [facility] [address] [place] [address], [place], [address], 09/21/2022 10:59:44 09/22/19 23 09/21/2022 UA WITHO UT MICRO - CS URISC AN glucose - uriscan NEGATI VE mg/dL negati ve Not Available [facility] [address] [place] [address], [place], [address], 09/21/2022 10:59:44 09/22/19 23 09/21/2022 UA WITHO UT MICRO - CS URISC AN pH - uriscan 5.50 5.00-9 .00 Not Available [facility] [address] [place] [address], [place], [address], 09/21/2022 10:59:44 09/22/19 23 09/21/2022 UA WITHO UT MICRO - CS URISC AN sp. gravity - uriscan 1.03 1.01-1 .03 Not Available [facility] [address] [facility] [address], [place], [address], 09/21/2022 10:59:44 09/22/19 23 09/21/2022 UA WITHO UT MICRO - CS URISC AN leukocytes - uriscan SMALL negati ve abnormal Not Available [facility] [address] [place] [address], [place], [address], 09/21/2022 10:59:44 09/22/19 23 09/21/2022 UA WITHO UT MICRO - CS URISC AN color - uriscan YELLOW Not Available [facility] [address] [place] [address], [place], [address], 09/21/2022 10:59:44 09/22/19 23 09/21/2022 UA WITHO UT MICRO - CS URISC AN clarity - uriscan CLEAR Not Available [facility] [address] [place] [address], [place], [address], 09/21/2022 10:59:44 09/22/19 23 09/21/2022 UA WITHO UT MICRO - CS URISC AN total urine volume (mL) 30 /mL Not Available [facility] [address] [place] [address], [place], [address], 09/21/2022 10:59:44 09/22/19 23 09/21/2022 UA MICRO SCOPI C U-WBC 50 - 100 [hpf] 0 - 2 abnormal Not Available [facility] [address] [place] [address], [place], [address], 09/21/2022 10:59:48 09/22/19 23 09/21/2022 UA MICRO SCOPI C U-RBC 0 - 2 [hpf] 0 - 2 Not Available [facility] [address] [place] [address], [place], [address], 09/21/2022 10:59:48 09/22/19 23 09/21/2022 UA MICRO SCOPI C bacteria Modera te [hpf] negati ve abnormal Not Available [facility] [address] [place] [address], [place], [address], 09/21/2022 10:59:48 09/22/19 23 09/21/2022 UA MICRO SCOPI C squamous epi Small /lpf negati ve,sma ll Not Available [facility] [address] [place] [address], [place], [address], 09/21/2022 10:59:48 09/22/19 23 09/21/2022 UA MICRO SCOPI C WBC clumps PRESEN T not presen t abnormal Not Available [facility] [address] [facility] [address], [place], [address], 09/21/2022 10:59:48 09/22/19 23 09/21/2022 URINE CULTU RE final report MICROB IOLOGY RESULT S abnormal Not Available [facility] [address] [facility] [address], [place], [address], 09/23/2022 10:08:54 11/23/19 23 11/22/2022 UA WITHO UT MICRO - CS URISC AN blood - uriscan NEGATI VE negati ve Not Available [facility] [address] [place] [address], [place], [address], 11/22/2022 15:24:43 11/23/19 23 11/22/2022 UA WITHO UT MICRO - CS URISC AN bilirubin - uriscan NEGATI VE mg/dL negati ve Not Available [facility] [address] [facility] [address], [place], [address], 11/22/2022 15:24:43 11/23/19 23 11/22/2022 UA WITHO UT MICRO - CS URISC AN urobilinogen - uriscan NORMAL mg/dL normal Not Available [facility] [address] [facility] [address], [place], [address], 11/22/2022 15:24:43 11/23/19 23 11/22/2022 UA WITHO UT MICRO - CS URISC AN ketones - uriscan NEGATI VE mg/dL negati ve Not Available [facility] [address] [facility] [address], [place], [address], 11/22/2022 15:24:43 11/23/19 23 11/22/2022 UA WITHO UT MICRO - CS URISC AN protein - uriscan NEGATI VE mg/dL negati ve Not Available [facility] [address] [facility] [address], [place], [address], 11/22/2022 15:24:43 11/23/19 23 11/22/2022 UA WITHO UT MICRO - CS URISC AN nitrites - uriscan POSITI VE negati ve abnormal Not Available [facility] [address] [place] [address], [place], [address], 11/22/2022 15:24:43 11/23/19 23 11/22/2022 UA WITHO UT MICRO - CS URISC AN glucose - uriscan NEGATI VE mg/dL negati ve Not Available [facility] [address] [place] [address], [place], [address], 11/22/2022 15:24:43 11/23/19 23 11/22/2022 UA WITHO UT MICRO - CS URISC AN pH - uriscan 5.00 5.00-9 .00 Not Available [facility] [address] [place] [address], [place], [address], 11/22/2022 15:24:43 11/23/19 23 11/22/2022 UA WITHO UT MICRO - CS URISC AN sp. gravity - uriscan 1.03 1.01-1 .03 Not Available [facility] [address] [place] [address], [place], [address], 11/22/2022 15:24:43 11/23/19 23 11/22/2022 UA WITHO UT MICRO - CS URISC AN leukocytes - uriscan TRACE negati ve abnormal Not Available [facility] [address] [place] [address], [place], [address], 11/22/2022 15:24:43 11/23/19 23 11/22/2022 UA WITHO UT MICRO - CS URISC AN color - uriscan YELLOW lt. yellow ;yello w Not Available [facility] [address] [place] [address], [place], [address], 11/22/2022 15:24:43 11/23/19 23 11/22/2022 UA WITHO UT MICRO - CS URISC AN clarity - uriscan CLEAR clear Not Available [facility] [address] [place] [address], [place], [address], 11/22/2022 15:24:43 11/23/19 23 11/22/2022 UA WITHO UT MICRO - CS URISC AN total urine volume (mL) 40 /mL Not Available [facility] [address] [place] [address], [place], [address], 11/22/2022 15:24:43 11/23/19 23 11/22/2022 UA MICRO SCOPI C U-WBC 50 - 100 [hpf] 0 - 2 abnormal Not Available [facility] [address] [place] [address], [place], [address], 11/22/2022 15:24:46 11/23/19 23 11/22/2022 UA MICRO SCOPI C U-RBC 0 - 2 [hpf] 0 - 2 Not Available [facility] [address] [place] [address], [place], [address], 11/22/2022 15:24:46 11/23/19 23 11/22/2022 UA MICRO SCOPI C bacteria Large [hpf] negati ve abnormal Not Available [facility] [address] [place] [address], [place], [address], 11/22/2022 15:24:46 11/23/19 23 11/22/2022 UA MICRO SCOPI C squamous epi Small /lpf negati ve,sma ll Not Available [facility] [address] [place] [address], [place], [address], 11/22/2022 15:24:46 11/23/19 23 11/22/2022 UA MICRO SCOPI C WBC clumps PRESEN T not presen t abnormal Not Available [facility] [address] [facility] [address], [place], [address], 11/22/2022 15:24:46 11/23/19 23 11/22/2022 URINE CULTU RE final report MICROB IOLOGY RESULT S abnormal Not Available [facility] [address] [facility] [address], [place], [address], 11/24/2022 10:33:35 02/14/20 23 02/13/2023 UA WITHO UT MICRO - CS URISC AN blood - uriscan NEGATI VE negati ve Not Available [facility] [address] [facility] [address], [place], [address], 02/13/2023 12:33:41 02/14/20 23 02/13/2023 UA WITHO UT MICRO - CS URISC AN bilirubin - uriscan NEGATI VE mg/dL negati ve Not Available [facility] [address] [facility] [address], [place], [address], 02/13/2023 12:33:41 02/14/20 23 02/13/2023 UA WITHO UT MICRO - CS URISC AN urobilinogen - uriscan NORMAL mg/dL normal Not Available [facility] [address] [facility] [address], [place], [address], 02/13/2023 12:33:41 02/14/20 23 02/13/2023 UA WITHO UT MICRO - CS URISC AN ketones - uriscan NEGATI VE mg/dL negati ve Not Available [facility] [address] [facility] [address], [place], [address], 02/13/2023 12:33:41 02/14/20 23 02/13/2023 UA WITHO UT MICRO - CS URISC AN protein - uriscan NEGATI VE mg/dL negati ve Not Available [facility] [address] [facility] [address], [place], [address], 02/13/2023 12:33:41 02/14/20 23 02/13/2023 UA WITHO UT MICRO - CS URISC AN nitrites - uriscan POSITI VE negati ve abnormal Not Available [facility] [address] [place] [address], [place], [address], 02/13/2023 12:33:41 02/14/20 23 02/13/2023 UA WITHO UT MICRO - CS URISC AN glucose - uriscan NEGATI VE mg/dL negati ve Not Available [facility] [address] [place] [address], [place], [address], 02/13/2023 12:33:41 02/14/20 23 02/13/2023 UA WITHO UT MICRO - CS URISC AN pH - uriscan 5.50 5.00-9 .00 Not Available [facility] [address] [place] [address], [place], [address], 02/13/2023 12:33:41 02/14/20 23 02/13/2023 UA WITHO UT MICRO - CS URISC AN sp. gravity - uriscan 1.02 1.01-1 .03 Not Available [facility] [address] [place] [address], [place], [address], 02/13/2023 12:33:41 02/14/20 23 02/13/2023 UA WITHO UT MICRO - CS URISC AN leukocytes - uriscan TRACE negati ve abnormal Not Available [facility] [address] [place] [address], [place], [address], 02/13/2023 12:33:41 02/14/20 23 02/13/2023 UA WITHO UT MICRO - CS URISC AN color - uriscan YELLOW lt. yellow ;yello w Not Available [facility] [address] [place] [address], [place], [address], 02/13/2023 12:33:41 02/14/20 23 02/13/2023 UA WITHO UT MICRO - CS URISC AN clarity - uriscan CLEAR clear Not Available [facility] [address] [place] [address], [place], [address], 02/13/2023 12:33:41 02/14/20 23 02/13/2023 UA WITHO UT MICRO - CS URISC AN total urine volume (mL) 40 /mL Not Available [facility] [address] [place] [address], [place], [address], 02/13/2023 12:33:41 02/14/20 23 02/13/2023 UA MICRO SCOPI C U-WBC 10 - 25 [hpf] 0 - 2 abnormal Not Available [facility] [address] [place] [address], [place], [address], 02/13/2023 12:33:46 02/14/20 23 02/13/2023 UA MICRO SCOPI C U-RBC 0 - 2 [hpf] 0 - 2 Not Available [facility] [address] [place] [address], [place], [address], 02/13/2023 12:33:46 02/14/20 23 02/13/2023 UA MICRO SCOPI C bacteria Large [hpf] negati ve abnormal Not Available [facility] [address] [place] [address], [place], [address], 02/13/2023 12:33:46 02/14/20 23 02/13/2023 UA MICRO SCOPI C squamous epi Small /lpf negati ve,sma ll Not Available [facility] [address] [place] [address], [place], [address], 02/13/2023 12:33:46 02/14/20 23 02/13/2023 URINE CULTU RE final report MICROB IOLOGY RESULT S abnormal Not Available [facility] [address] [place] [address], [place], [address], 02/15/2023 11:26:28 Result Notes None recorded. Problems Name Status Onset Date Resolution Date Notes Provider Name and Address Organization Details Recorded Time History of statin therapy Active 04/05/20 Sandra Duncan [facility] 04/05/2023 10:19:09 Depressive disorder Active 04/12/20 Sandra Duncan [facility]rew [facility] 04/12/2023 15:56:02 Diabetes mellitus Active 04/12/20 Sandra Duncan [facility]rew [facility] 04/12/2023 15:56:21 Problem Notes None recorded. Procedures Surgical History Date Name Laterality Status Provider Name and Address Organization Details Recorded Time 02/14/20 Bladder Scan completed Sandra morales [facility] 02/13/2023 12:08:45 11/23/19 Bladder Scan completed DINESH Andino [address] [place] [address],[address], [place], [address], [facility] 11/22/2022 14:55:49 09/22/19 23 Past Data Reviewed completed DINESH Andino [address] [place] [address],[address], [place], [address], [facility] 09/21/2022 10:28:49 09/22/19 23 Bladder Scan completed DINESH Andino [address] [place] [address],[address], [place], [address], [facility] 09/21/2022 10:46:28 09/16/19 15 Diagnostic colonoscopy completed Not Available Health Note 09/19/2022 14:43:[address] gastr adj device completed Not Available Health Note 09/19/2022 14:43:01 Excise epiphyseal bar completed Not Available Health Note 09/19/2022 14:43:01 delivery completed Not Available Health Note 09/19/2022 14:43:01 Imaging Results None recorded. Procedure Notes None recorded. Medical Equipment None Reported. Allergies No known drug allergies Medications Name Sig Start Date Stop Date Status Note LastModified by Organization Details LastModified Time doxycycli ne hyclate 100 mg capsule TAKE 1 CAPSULE BY MOUTH TWICE DAILY 11/22 completed HN: Patient reports no longer taking Not Available Not Available Not Available tolterodi ne ER 4 mg capsule,e xtended release 24 hr TAKE 1 CAPSULE BY MOUTH EVERY DAY active Not Available Not Available No t Available cephalexi n 250 mg capsule TAKE 1 CAPSULE BY MOUTH EVERY DAY active Not Available Not Available No t Available tolterodi ne 1 mg tablet 1mg 1/day 11/22 completed Not Available Not Available Not Available meloxicam 15 mg tablet TAKE 1 TABLET BY MOUTH EVERY DAY NEEDED FOR PAIN active Not Available Not Available No t Available cephalexi n 250 mg tablet Take 1 tablet every day by oral route for 90 days. 2022 active Not Available Not Available Not Avai lable alendrona te 70 mg tablet TAKE 1 TABLET BY MOUTH EVERY WEEK active Not Available Not Available No t Available metoprolo l succinate ER 100 mg tablet,ex tended release 24 hr TAKE 1 TABLET BY MOUTH EVERY DAY active Not Available Not Available No t Available acetamino phen 300 mg-codein e 30 mg tablet TAKE 1 TO 2 TABLETS BY MOUTH EVERY 6 HOURS NEEDED 11/22 completed HN: Patient reports no longer taking Not Available Not Available Not Available amlodipin e 5 mg tablet TAKE 1 TABLET BY MOUTH AT BEDTIME 02/13 completed HN: Patient reports no longer taking Not Available Not Available Not Available tramadol 50 mg tablet TAKE 1 TO 2 TABLETS BY MOUTH EVERY 8 HOURS NEEDED FOR PAIN 11/22 completed HN: Patient reports no longer taking Not Available Not Available Not Available triamcino lone acetonide 0.1 % topical cream APPLY TOPICALL Y TO THE AFFECTED AREA TWICE DAILY NEEDED FOR RASH 02/13 completed HN: Patient reports no longer taking Not Available Not Available Not Available prazosin 5 mg capsule TAKE 1 CAPSULE BY MOUTH EVERY DAY AT BEDTIME active Not Available Not Available No t Available oxycodone -acetamin ophen 5 mg-325 mg tablet TAKE 1 TO 2 TABLETS BY MOUTH EVERY 4 TO 6 HOURS NEEDED FOR PAIN 11/22 completed HN: Patient reports no longer taking Not Available Not Available Not Available trazodone 100 mg tablet TAKE 1 TO 2 TABLETS BY MOUTH EVERY DAY AT BEDTIME active Not Available Not Available No t Available levothyro xine 50 mcg tablet TAKE 1 TABLET BY MOUTH DAILY 09/21 completed Not Available Not Available Not Available cephalexi n 500 mg capsule TAKE 1 CAPSULE BY MOUTH EVERY 8 HOURS FOR 10 DAYS active Not Available Not Available No t Available diclofena c sodium 50 mg tablet,de layed release TAKE 1 TABLET BY MOUTH TWICE DAILY 11/22 completed HN: Patient reports no longer taking Not Available Not Available Not Available lorazepam 1 mg tablet TAKE 1 TABLET BY MOUTH EVERY DAY NEEDED FOR ANXIETY active Not Available Not Available No t Available estradiol 0.01% (0.1 mg/gram) vaginal cream Apply fingerfu l amount (0.5 g) vaginall y every night x 1 week then 2-3 nights per week 02/13 completed Not Available Not Available Not Available albuterol sulfate HFA 90 mcg/actua tion aerosol inhaler INHALE 2 PUFFS BY MOUTH EVERY 4 HOURS NEEDED 11/22 completed HN: Patient reports no longer taking Not Available Not Available Not Available buspirone 15 mg tablet TAKE 1 TABLET BY MOUTH TWICE DAILY active Not Available Not Available No t Available escitalop aleksandra 20 mg tablet TAKE 1 TABLET BY MOUTH EVERY DAY active Not Available Not Available No t Available aripipraz ole 5 mg tablet TAKE 1 TABLET BY MOUTH AT BEDTIME active Not Available Not Available No t Available rosuvasta tin 5 mg tablet TAKE 1 TABLET BY MOUTH DAILY active Not Available Not Available No t Available levothyro xine 50mcg 1/day active Not Available Not Available No t Available amlodipin e 5mg 1/day 02/13 completed HN: Patient reports no longer taking Not Available Not Available Not Available aripipraz ole 15 mg disintegr ating tablet 5mg 1/day 11/22 completed HN: Patient reports no longer taking Not Available Not Available Not Available levothyro xine 50 mcg capsule TAKE 1 CAPSULE BY MOUTH EVERY DAY active Not Available Not Available No t Available alendrona te 70 mg effervesc ent tablet 70mg 1/day 11/22 completed HN: Patient reports no longer taking Not Available Not Available Not Available metoprolo l succinate ER 100 mg capsule sprinkle, ext. release 24 hr 100mg 1/day 11/22 completed HN: Patient reports no longer taking Not Available Not Available Not Available rosuvasta tin 5 mg sprinkle capsule 5mg 1/day 11/22 completed HN: Patient reports no longer taking Not Available Not Available Not Available Ozempic 1 mg/dose (4 mg/3 mL) subcutane ous pen injector INJECT 1MG SUBCUTAN EOUS EVERY WEEK active Not Available Not Available No t Available Ozempic 0.25 mg or 0.5 mg (2 mg/3 mL) subcutane ous pen injector INJECT 0.5MG SUBCUTAN EOUS ONCE WEEKLY active Not Available Not Available No t Available Vitals Date Recorded Body height Body mass index (BMI) Body weight Provider Name and Address Organization Details Last Updated DateTime 09/21/2022 157.48 cm 43 kg/m2 654942.333 717729 g Not Available Health Note 09/21/2022 10:18:37 Date Recorded Body weight Body height Body mass index (BMI) Provider Name and Address Organization Details Last Updated DateTime 11/22/2022 539262.3208 89821 g 160.02 cm 40.7 kg/m2 Not Available Health Note 11/22/2022 14:24:16 Date Recorded Body height Body mass index (BMI) Body weight Provider Name and Address Organization Details Last Updated DateTime 02/13/2023 160.02 cm 40.7 kg/m2 382947.25 g Sandra Duncan [place] - [facility] 02/13/2023 12:03:26 Social History Question Answer Notes LastModified by Organizat ion Details LastModified Time Tobacco Smoking Status Never Smoker Not Available Health Note 11/18/2022 15:41:07 What Is Your Level Of Alcohol Consumption? None Information not available 11/22/2022 What Is Your Level Of Caffeine Consumption? Occasional [email or web address] Information not available 11/18/2022 How Much Tobacco Do You Chew? None [email or web address] Information not available 11/18/2022 Do You Or Have You Ever Used E-cigarettes Or Vape? Never Used Electronic Cigarettes [email or web address] Information not available 11/18/2022 Number Of Pregnancies 2 [email or web address] Information not available 09/19/2022 Number Of Vaginal Deliveries 0 [email or web address] Information not available 09/19/2022 Number Of Caesarean Sections 1 [email or web address] Information not available 09/19/2022 Could You Be ? No [email or web address] Information not available 11/18/2022 What Was The Date Of Your Most Recent Tobacco Screening? 11/22/2022 [email or web address] Information not available 11/18/2022 What Is Your Relationship Status? Single [email or web address] Information not available 11/18/2022 Are You Sexually Active? No [email or web address] Information not available 11/18/2022 Do You Or Have You Ever Used Smokeless Tobacco? Never Used Smokeless Tobacco [email or web address] Information not available 11/18/2022 Do You Use Any Illicit Or Recreational Drugs? No [email or web address] Information not available 11/18/2022 Has Tobacco Cessation Counseling Been Provided? No [email or web address] Information not available 04/05/2023 Do You Or Have You Ever Used Any Other Forms Of Tobacco Or Nicotine? No [email or web address] Information not available 04/05/2023 Sex: Unknown Functional Status None recorded. Mental Status None recorded. Family History Relationship Description Onset Age of this Age Resolved Age Notes Mother Family history of di abetes mellitus Medical History Condition Response High Blood Pressure Y Kidney Stones N Depression Y Lung Disease N GERD/Acid Reflux N Sexually Transmitted Infection N Cancer Y High Cholesterol Y Diabetes N Bleeding Disorder N Heart Disease N Gynecological History Statement/Question Response If Post Menopausal, Age at Menopause 38 Hormone Therapy N Sexually Active? N Obstetrics History GPAL:G 0 P 0 0 0 0 Immunizations Vaccine Type Date Status Provider Name and Address Organization Details Recorded Time influenza, unspecified formulation 08/15/2022 completed Not Available Health Note 09/19/2022 14:43:06 SARS-COV-2 (COVID-19) vaccine, UNSPECIFIED 09/16/2019 completed Not Available Health Note 09/19/2022 14:43:06 pneumococcal, unspecified formulation 08/17/2001 completed Not Available Health Note 09/19/2022 14:43:06 pneumococcal, unspecified formulation 06/26/2022 completed Not Available Health Note 11/18/2022 15:41:13 SARS-COV-2 (COVID-19) vaccine, UNSPECIFIED 06/17/2021 completed Not Available Health Note 11/18/2022 15:41:13 influenza, unspecified formulation 06/17/2021 completed Not Available Health Note 11/18/2022 15:41:13 Past Encounters Encounter ID Performer Location Encounter Start Date Encounter Closed Date Diagnosis/Indication Diagnosis SNOMED-CT Code [id number] DINESH Andino [facility] [address] [address] 09/21/2022 10:15:51 09/21/2022 11:03:00 Overactive urinary bladder [id number] Atrophic vaginitis 60271 000 Stenosis of vagina 52124 009 [id number] DINESH Andino [facility] [address] [address] 11/22/2022 14:22:37 11/22/2022 15:12:20 Overactive urinary bladder [id number] Atrophic vaginitis 67948 000 Stenosis of vagina 04804 009 [id number] DINESH Andino [address] [address] 02/13/2023 11:59:13 02/13/2023 12:37:30 Overactive urinary bladder 495639763 Atrophic vaginitis 22933 000 Stenosis of vagina 09616 009 Recurrent urinary tract infection [id number] Health Concerns Section Related Observation LastModified by Organization Detai ls LastModified Time None Recorded Concern Status LastModified by Organization Details LastModified Time None Recorded Advance Directives Directive None Recorded Payers Encounter Date Sequence Insurance Name Policy Number Policy Jarrett Covered Member ID Jarrett Member ID Guarantor Name 09/21/2022 2 [place] [employer] 111 Anna Kerns [id number] Anna Kerns 11/22/2022 2 [place] [employer] 111 Anna Randolphl [id number] Anna Kerns 11/22/2022 1 [place] [employer] Anna Kerns [id number] Anna Kerns 02/13/2023 2 [place] [employer] 111 Anna Randolphl [id number] Anna Kerns 02/13/2023 1 [place] [employer] Anna Kerns [id number] Anna Kerns Notes Date Note Type Note Provider Name and Address Organization Details Recorded Time 09/21/2022 text/html HPI Notes: 3: Patient referred for evaluation of urinary frequency. PMH: HTN, breast cancer (s/p chemo), depression. Incontinence bothersome for the past 3+ years at least. Reports urge urinary incontinence (UUI). Taking tolterodine 2 mg (1 mg BID), for years. Does not feel like it is working. She wakes up 2 times a night. She voids 8 times a day. She uses 2 large pads per day. Reports stress urinary incontinence (ANIBAL), with activity but less bothersome. Has lichen and uses triamcinolone cream BID - has not seen gynecology in years. Denies history of recurrent urinary tract infections, kidney stones, and gross hematuria. , . Denies symptomatic prolapse. Patient is not sexually active. Past abdominal surgeries include: , gastric bypass. Takes stool softener with constipation, otherwise regular BMs. Denies neurologic history. Denies smoking history. Occasional caffeine use, 1 cup coffee. Drinks a lot of water, 5-6 water bottles a day. (CHAVA-6):9, (IIQ-7):16 DINESH Andino [address] [place] [address],[facility] [address], [address], [facility] 09/21/2022 11:00:24 11/22/2022 text/html HPI Notes: 3: Patient presents to follow up for overactive bladder (OAB). tx for UTI after last visit. No difference with the antibiotics. Never got the Tolterodine ER 4 mg. Still taking the tolterodine 1 mg BID. She wakes up 1-2 times a night. She voids 6 times a day. She uses 1 pads per day. Held off on use of vaginal estrogen cream for a while since with using it, she had tenderness to breasts with starting it. (CHAVA-6):6, (IIQ-7):5, Continence Function Questionnaire:10 09/21/22: Patient referred for evaluation of urinary frequency. PMH: HTN, breast cancer (s/p chemo), depression. Incontinence bothersome for the past 3+ years at least. Reports urge urinary incontinence (UUI). Taking tolterodine 2 mg (1 mg BID), for years. Does not feel like it is working. She wakes up 2 times a night. She voids 8 times a day. She uses 2 large pads per day. Reports stress urinary incontinence (ANIBAL), with activity but less bothersome. Has lichen and uses triamcinolone cream BID - has not seen gynecology in years. Denies history of recurrent urinary tract infections, kidney stones, and gross hematuria. , . Denies symptomatic prolapse. Patient is not sexually active. Past abdominal surgeries include: , gastric bypass. Takes stool softener with constipation, otherwise regular BMs. Denies neurologic history. Denies smoking history. Occasional caffeine use, 1 cup coffee. Drinks a lot of water, 5-6 water bottles a day. (CHAVA-6):9, (IIQ-7):16 DINESH Andino [address] [place] [address],[address], [place], [address], [facility] 11/22/2022 15:56:50 02/13/2023 text/html HPI Notes: : Patient presents to follow up for overactive bladder (OAB). Feels like she may have an infection today. Symptoms of odor urine, suprapubic pressure/bloating. Notes benefit with the antibiotics. She is taking tolterodine ER 4 mg. Denies bothersome side effects. Reports she has more control of her urinary urge. Symptoms at least 50% better since last appointment. Happy with current treatment plan. She wakes up 1 times a night. She voids 8 times a day. She uses 1 pads per day. BM every few days, takes miralax for this. (CHAVA-6):5, (IIQ-7):3, Continence Function Questionnaire:11 11/22/22: Patient presents to follow up for overactive bladder (OAB). tx for UTI after last visit. No difference with the antibiotics. Never got the Tolterodine ER 4 mg. Still taking the tolterodine 1 mg BID. She wakes up 1-2 times a night. She voids 6 times a day. She uses 1 pads per day. Held off on use of vaginal estrogen cream for a while since with using it, she had tenderness to breasts with starting it. (CHAVA-6):6, (IIQ-7):5, Continence Function Questionnaire:10 09/21/22: Patient referred for evaluation of urinary frequency. PMH: HTN, breast cancer (s/p chemo), depression. Incontinence bothersome for the past 3+ years at least. Reports urge urinary incontinence (UUI). Taking tolterodine 2 mg (1 mg BID), for years. Does not feel like it is working. She wakes up 2 times a night. She voids 8 times a day. She uses 2 large pads per day. Reports stress urinary incontinence (ANIBAL), with activity but less bothersome. Has lichen and uses triamcinolone cream BID - has not seen gynecology in years. Denies history of recurrent urinary tract infections, kidney stones, and gross hematuria. , . Denies symptomatic prolapse. Patient is not sexually active. Past abdominal surgeries include: , gastric bypass. Takes stool softener with constipation, otherwise regular BMs. Denies neurologic history. Denies smoking history. Occasional caffeine use, 1 cup coffee. Drinks a lot of water, 5-6 water bottles a day. (CHAVA-6):9, (IIQ-7):16 DINESH Andino [address] [place] [address],[facility] [address], [place], [address], [facility] 02/13/2023 13:07:44 OBGyn Episode No OBEpisode recorded.
== END 2023-12-17 13:11 | disposition home or self-care (01) ==
LOC: NFLDREF 12-19 11:45
PROVIDERS: PCP Family Medicine; Referring Provider Family Medicine; Visit Provider Physician Assistant
DX: N39.0 Urinary tract infection, site not specified (principal); B96.89 Other specified bacterial agents as the cause of diseases classified elsewhere
CPT/HCPCS: 87086; 87186

== ENCOUNTER 2024-01-07 13:18 | Outpatient (CLI) | payer MEDICARE, BC, SELFPAY ==
--- OUTSIDE RECORDS SUMMARY | 2024-01-09 08:18 | XMS_ITS | Clinical Summary ---
Author Organization [facility] Address [place], [place] [address] Care Team Providers Care Lumber Racker Name Role Phone Hieu Santos MD Primary Care Provider Elizabeth Wallace NP Unavailable Unavailable Allergies Active [...] Comments Blood Pressure 144/80 04/20/2020 2:22 PM CAR SEAT UPHOLSTERER Pulse 61 04/20/2020 2:22 PM CAR SEAT UPHOLSTERER Temperature 36.7 ??C (98.1 ??F) 04/20/2020 2:22 PM CS T Respiratory Rate 16 01/04/2005 1:00 PM CDT Oxygen Saturation 96% 04/20/2020 2:22 PM CAR SEAT UPHOLSTERER Inhaled Oxygen Concentration - - Weight 84.5 kg (186 lb 3.2 oz) 04/20/2020 2:22 P M CAR SEAT UPHOLSTERER Height 160 cm (5' 3) 05/16/2009 2:00 PM CAR SEAT UPHOLSTERER Body Mass Index - - Plan of [...] Influenza for age 65+ 02/16/2024 Care Teams Lumber Racker Relationship Specialty Start Date End Date Hieu Santos MD [address] [place] [address] PCP - General Family Practice 05/29/17 Elizabeth Wallace NP 05/29/17
== END 2024-01-07 13:19 | disposition home or self-care (01) ==
LOC: NFLDREF 01-09 08:13
PROVIDERS: PCP Family Medicine; Referring Provider Family Medicine; Visit Provider Family Medicine
DX: N39.0 Urinary tract infection, site not specified (principal)
CPT/HCPCS: 87086; 87186

== ENCOUNTER 2024-02-12 13:48 | Outpatient (CLI) | payer MEDICARE, BC, SELFPAY ==
--- OUTSIDE RECORDS SUMMARY | 2024-02-12 13:50 | XMS_ITS | Clinical Summary ---
Author Organization [facility] Address [place], [place] [address] Care Team Providers Care Scientific Laboratory Supervisor Name Role Phone Hieu Santos MD Primary Care Provider [phone] Elizabeth Wallace NP Unavailable Unavailable Allergies Active [...] Comments Blood Pressure 144/80 04/20/2020 2:22 PM LINE PALLETIZER Pulse 61 04/20/2020 2:22 PM LINE PALLETIZER Temperature 36.7 ??C (98.1 ??F) 04/20/2020 2:22 PM CS T Respiratory Rate 16 01/04/2005 1:00 PM CDT Oxygen Saturation 96% 04/20/2020 2:22 PM LINE PALLETIZER Inhaled Oxygen Concentration - - Weight 84.5 kg (186 lb 3.2 oz) 04/20/2020 2:22 P M LINE PALLETIZER Height 160 cm (5' 3) 05/16/2009 2:00 PM LINE PALLETIZER Body Mass Index - - Plan of [...] Influenza for age 65+ 02/16/2024 Care Teams Scientific Laboratory Supervisor Relationship Specialty Start Date End Date Hieu Santos MD PCP - General Family Practice 05/29/17 Elizabeth Wallace NP 05/29/17
--- NOTE | 2024-02-12 14:00 | CRLHL7_ITS ---
For Patients: As a result of the Century Cures Act, medical imaging exams and procedure reports are released immediately into your electronic medical record. You may view this report before your referring provider. If you have questions, please contact your health care provider. DXA BONE MINERAL DENSITY STUDY Reason for exam: Osteoporosis. Current height (in): 64. Weight (lb): 235. Menopause age: 39. Ethnicity: White. 1. Have you had a previous hip or vertebral fracture? No. 2. Have you had any fractures during your adult life which did not result from significant trauma (e.g., auto accident)? Yes. 3. Did either of your parents have a hip fracture? No. 4. Do you smoke? No. 5. Have you ever taken Glucocorticoids? No. 6. Do you have rheumatoid arthritis? No. 7. Do you have secondary osteoporosis? No. 8. Do you drink 3 or more alcoholic drinks per day? No. 9. Are you being treated for osteoporosis? No. 10. Have you ever taken any of the following medications: Actonel, Evista, Fosamax, Miacalcin, Reclast, Boniva, Forteo, HRT (i.e. estrogen/hormone therapy), Protelos, Prolia, Vitamin D, Calcium, other ??? please specify. ANSWER: Yes, Fosamax. 11. Do you have any of the following medical conditions: Anorexia or bulimia, asthma or emphysema, end stage renal disease, hyperparathyroidism, any seizure disorders, cancer, inflammatory bowel diseases, hysterectomy, other ??? please specify. ANSWER: Yes, cancer. 12. What was your maximum height (inches)? 64. 13. Do you perform weight bearing exercise regularly? No. 14. Do you regularly consume dairy products? No. 15. Do you drink caffeinated beverages? No. 16. At what age did your period start? 13. 17. Are you premenopausal? No. 18. How many full term pregnancies have you had? 1. 19. Have you ever missed your period for more than 6 months in a row (not including or menopause)? Yes. TECHNIQUE: Bone mineral density study was performed using the [email or web address]. FINDINGS: The results of the study expressed as bone mineral density (BMD) are as follows: Lumbar spine L1 to L3: BMD: 0.891 g/cm2. T-score: -1.2. Z-score: 0.8. Neck Right: BMD: 0.621 g/cm2. T-score: -2.1. Z-score: -0.4. Total Right: BMD: 0.722 g/cm2. T-score: -1.8. Z-score: -0.4. Radius Right 33%: BMD: 0.403 g/cm2. T-score: -4.8. Z-score: -2.9. IMPRESSION: Osteoporosis. *Comparison exams done prior to 11/2019 were performed on different unit, servtag. COMPARISON: Compared with scan of 08/30/2022, the bone mineral density has increased by 11 percent at the spine, increased by 5.8 percent at the hip, and decreased by 18.1 percent at the forearm. FRAX 10-year Fracture Risk Major Osteoporotic Fracture: 16 percent Hip Fracture: 2.6 percent Reported Risk Factors: [place] () Neck BMD=0.621, BMI=40.3, previous fracture Omar Corcoran M.D. Diagnostic Radiologist [email or web address] SP/Dictated by: Omar Corcoran MD @ 02/13/2024 12:23:00 PM (Electronically Signed)
--- NOTE | 2024-02-12 14:40 | CRLHL7_ITS ---
For Patients: As a result of the Century Cures Act, medical imaging exams and procedure reports are released immediately into your electronic medical record. You may view this report before your referring provider. If you have questions, please contact your health care provider. BILATERAL SCREENING MAMMOGRAM WITH COMPUTER-AIDED DETECTION AND TOMOSYNTHESIS TECHNIQUE: CC and MLO views were obtained. These mammographic images have been obtained using full-field digital technique. These mammographic images were interpreted with the benefit of computer-aided detection. Breast Tomosynthesis was used in this interpretation. COMPARISON FILM: 10/30/22, 09/26/21, 04/26/20. FINDINGS: There are scattered areas of fibroglandular density. IMPRESSION: There is no radiographic evidence for malignancy. ASSESSMENT: BI-RADS Category 2: Benign RECOMMENDATION: Routine screening mammogram in 1 year. A lay language report of this examination will be provided to the patient. Omar Corcoran M.D. Diagnostic Radiologist [email or web address] SP/Dictated by: Omar Corcoran MD @ 02/13/2024 10:55:00 AM (Electronically Signed)
== END 2024-02-12 13:49 | disposition home or self-care (01) ==
LOC: RAD 13:48
PROVIDERS: PCP Family Medicine; Visit Provider Family Medicine
DX: Z12.31 Encounter for screening mammogram for malignant neoplasm of breast (principal); M81.0 Age-related osteoporosis without current pathological fracture
CPT/HCPCS: 77063; 77067; 77080